=== PATIENT | male | born 2000 | race Caucasian/White ===

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

== ENCOUNTER 2019-04-27 20:59 | Emergency (ER) | payer MEDICAID, SELFPAY ==
--- NOTE | 2019-04-27 21:00 | ED.GENADUL_ITS ---
Discharge Plan Disposition Patient Disposition: HOME Condition: Good Discharge Details Chief Complaint: Fever Clinical Impression: Viral URI, Asthma exacerbation Primary Care Provider: Cesar Law ED Provider: Fidel Simental Home Meds and New Rx's Prescriptions: New loratadine 10 mg capsule 10 mg PO DAILY Qty: 30 RF: 0 No Action albuterol sulfate [ProAir HFA] 8.5 GM HFA aerosol inhaler 2 puff Inhalation Q4H PRN Qty: 1 RF: 0 Discharge Instructions Instructions: Asthma (ED), Upper Respiratory Infection (ED) Additional Instructions: At this time your flu test is negative, however you may still have the influenza virus. I do suspect that a virus is causing her symptoms. Please take 10 mg of loratadine daily as directed. Drink plenty of fluids, use your inhaler every 4 hours, 2 puffs to help keep your lungs open for your asthma. If you notice any worsening of your symptoms, or any new symptoms such as vomiting, diarrhea, fever, chills, shortness of breath, chest pain, numbness, weakness, or fainting , please return immediately to the emergency department for reevaluation. Please follow up with your primary care provider as soon as possible for reassessment and reevaluation. As always, it was a pleasure participating in your medical care today. Referrals: Cesar Law MD [Primary Care Provider] - Medical Decision Making 49-year-old male with a past medical history of GERD, irritable bowel syndrome, who presents today for evaluation of cough congestion shortness of breath. Patient was seen and assessed here 4 days ago, with signs and symptoms concerning for influenza. Rapid flu testing was negative. Discharged home as he was notably stable at that time. He presents again today for symptoms that have been notably worsening. He continues to have myalgias, cough, intermittent fever, chills, and he has now developed mild shortness of breath with his cough. He denies any significant chest pain aside from when coughing. Entirety of his symptoms have been present for 1 week. He denies any significant headache or neck pain. He denies vomiting or diarrhea. He has been able to eat and drink. He has no other complaints at this time. He denies any other modifying factors. He denies not smoke, vape, or history of lung disease. The patient denies any recent foreign travel or contact with recent immigrants, Travelers, or peoples of [place] or [facility]. Physical exam shows no evidence of abnormal lung sounds, oxygenation is normal. No signs of respiratory distress. No clinical signs of meningitis. Signs and symptoms clinically consistent with a viral upper respiratory infection, fluid certainly on the differential. Symptoms appear inconsistent with coronavirus clinically at this time. However out of precaution, the patient has been placed in an isolated room, with facemask. Will give nebulizer treatment, check for influenza and reassess. Also of note bedside ultrasound was negative for any evidence of infiltrative B-lines. No clinical evidence of pneumonia. No indication for radiographic imaging. 10:21 PM Patient is feeling much better after breathing treatment. Influenza test is negative. Strep test is negative. Signs and symptoms clinically consistent with a viral upper respiratory infection, with no evidence of pneumonia. We will recommend loratadine for home use, given inhaler and spacer for the time being until he can establish follow-up with his PCP. Discussed red flags which to return. At this time the patient shows no evidence of life-threatening illness. I did have a long discussion with the patient and his family who are at bedside regards to signs and symptoms which to immediately return that would be concerning. I have extensively reviewed the treatment plan and discharge instructions with the patient. I have addressed all patient concerns at this time. The patient was made aware of what symptoms to monitor for that would warrant a return to the emergency department. Discussed the plan with the patient, they demonstrate verbal understanding and agreement with our assessment and plan at this time. HPI General Date/Time Provider Initiated Documentation: 04/27/19 20:59 . HPI Narrative: 18-year-old male with a past medical history of asthma, vaping, marijuana use who presents today for evaluation of 24 hours of chills, co ngestion, sinus congestion, runny nose. Patient states that symptoms began with runny nose and congestion 24 hours ago, over the last 12 hours it is included mild cough. He denies shortness of breath or chest pain. He does have a history of asthma but has not had any of his inhalers for quite some time as he has run out. Of note the patient just came back from [place] after living in there for quite some time. He took the bus up here to [place]. He did not get his flu shot this year. The patient denies any recent foreign travel or contact with recent immigrants, Travelers, or peoples of [place] or [facility]. Patient denies any hemoptysis, nausea vomiting or diarrhea. He does admit to a small amount of productivity with his cough which is clear and sometimes yellow. No other complaints of headache, neck pain. No other modifying factors. Related Data Home Medications Medication Instructions Recorded Confirmed albuterol sulfate [ProAir HFA] 2 puff INHALATION Q4H PRN #1 06/19/17 04/27/19 inhaler loratadine 10 mg PO DAILY #30 cap 04/27/19 Previous Rx's Medication Instructions Recorded albuterol sulfate [ProAir HFA] 2 puff INHALATION Q4H PRN #1 06/19/17 inhaler loratadine 10 mg PO DAILY #30 cap 04/27/19 Allergies Allergy/AdvReac Type Severity Reaction Status Date / Time No Known Allergies Allergy Unverified 04/27/19 21:06 General AGGIE: 2 Review of Systems All systems reviewed & are unremarkable except as noted in HPI and below PFSH Social History Smoking/Tobacco Use Status: Current every day Tobacco Type: e-cigarettes Alcohol Intake: current Alcohol Intake frequency: holidays/special occasions only Alcohol type: beer Drug use: Occasionally Substance use type: marijuana Do you feel safe at home: Yes Do you feel safe in your relationship?: Yes Exam Narrative Exam Narrative: 1.Const: Well-nourished, Well-developed, appearing stated age 2.Eyes: PERRL, no conjunctival injection, and symmetrical lids. 3.ENT: Atraumatic external nose and ears. Moist MM. Neck: Symmetric, trachea midline, No thyromegaly. Patient demonstrates good movement of cervical neck. There is no nuchal rigidity, no nuchal tenderness. Patient is able to flex the neck without any difficulty or significant pain. Negative Kernig's and Brudzinski sign. Notable runny nose, mild cobblestoning in the posterior oropharynx. 4.CVS: +S1/S2, No murmurs or gallops. Peripheral pulses 2+ and equal in all extremities. Brisk capillary refill in all extremities. 5.RESP: Unlabored respiratory effort. Clear to auscultation bilaterally. No wheezes rales or rhonchi, no clinical evidence of pneumonia. 6.GI: Soft, Nontender/Nondistended, No hepatosplenomegaly. No guarding or rebound. 7.MSK: Normocephalic/Atraumatic, Extremities w/o deformity or ttp No cyanosis or clubbing, Normal movement of all extremities 8.Skin: Warm, Dry. No rashes or lesions. Negative Nikolsky sign. No large vesicles or bulla. No palpable purpura. No oral lesions. No mucosal lesions. No evidence of severe cellulitis. No evidence of vaccine preventable rash. 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 Sensation grossly intact, no focal neurologic deficits. 10.Psych: (AAO) x3. Appropriate mood and affect
[2019-04-27 21:02] VITALS: BP 158/96; PULSE 107; RESP 18; TEMP 36.7; O2SAT 95
[2019-04-27 21:26] VITALS: RESP 7
[2019-04-27] MEDS: Ketorolac 30 MG/ML VIAL IM (21:26)
[2019-04-27] MEDS: Loratidine 10 MG TAB PO (21:26)
[2019-04-27] MEDS: Albuterol/Ipratropium 3 ML UPD VIAL UPD (21:26)
[2019-04-27] MEDS: Albuterol HFA 8 GM 60 PUFF INH IH (22:27)
[2019-04-27] MEDS: Inhaler, Assist Device 1 EACH MC (22:27)
== END 2019-04-27 22:35 | disposition home or self-care (01) ==
PROVIDERS: Emergency Provider Student in an Organized Health Care Education/Training Program; PCP Pediatrics
DX: J45.901 Unspecified asthma with (acute) exacerbation (principal); J06.9 Acute upper respiratory infection, unspecified; B34.9 Viral infection, unspecified; F17.290 Nicotine dependence, other tobacco product, uncomplicated
CPT/HCPCS: 87449; 87880; 94640; 96372; 99284; 87081; 99283; J1885; J7620

== ENCOUNTER 2019-07-26 23:10 | Emergency (ER) | payer MEDICAID, SELFPAY ==
[2019-07-26 23:14] VITALS: BP 147/84; PULSE 97; RESP 18; TEMP 36.3; O2SAT 97
--- NOTE | 2019-07-26 23:24 | ED.GENADUL_ITS ---
Discharge Plan Disposition Patient Disposition: HOME Condition: Stable Discharge Details Chief Complaint: Laceration Clinical Impression: Laceration of knee, left Primary Care Provider: Cesar Law ED Provider: Gibson Greenfield [place] Meds and New Rx's Prescriptions: Continued albuterol sulfate [ProAir HFA] 8.5 GM HFA aerosol inhaler 2 puff Inhalation Q4H PRN Qty: 1 RF: 0 loratadine 10 mg capsule 10 mg PO DAILY Qty: 30 RF: 0 Discharge Instructions Instructions: Laceration (ED) Additional Instructions: return in 10 days for evaluation for suture removal if you have spreading redness or yellow/white discharge return to the emergency department for reevaluation Stand Alone Forms: Work Release Medical Decision Making 18 yo male was walking when he tripped and landed on gravel, no head trauma or loc but did sustain a v shaped 3cm laceration of left inferior anterior knee. Has full romof the knee and can bear weight, lac only goes to subcutanous tissue. Given full rom and can bear weight doubt fracture or tendon injury. Will irrigate and close with sutures Differential Diagnosis Differential Diagnosis: laceration abrasion HPI General Mode of arrival: ambulatory . Date/Time Provider Initiated Documentation: 07/26/19 23:11 . Limitations to Documentation: no limitations . Information obtained by: patient . History of Present Illness 18 year old M presents to the emergency department with the chief complaint of left knee laceration, described as moderate, and it has been constant. No relieving factors improve symptom(s), No exacerbating factors reported . Patient did receive the following treatments prior to arrival, none Related Data Home Medications Medication Instructions Recorded Confirmed albuterol sulfate [ProAir HFA] 2 puff INHALATION Q4H PRN #1 18 04/27/19 inhaler loratadine 10 mg PO DAILY #30 cap 04/27/19 Previous Rx's Medication Instructions Recorded albuterol sulfate [ProAir HFA] 2 puff INHALATION Q4H PRN #1 06/19/17 inhaler loratadine 10 mg PO DAILY #30 cap 04/27/19 Allergies Allergy/AdvReac Type Severity Reaction Status Date / Time No Known Allergies Allergy Unverified 04/27/19 21:06 General Stated Complaint: Laceration AGGIE: 4 Review of Systems All systems reviewed & are unremarkable except as noted in HPI and below Constitutional Constitutional: Denies chills, Denies fever(s) and Denies weakness Cardiovascular Cardiovascular: Denies chest pain and Denies dyspnea Respiratory Respiratory: Denies cough and Denies dyspnea Gastrointestinal Gastrointestinal: Denies abdominal pain, Denies nausea and Denies vomiting Musculoskeletal Musculoskeletal: Denies joint swelling Neurologic Neurologic: Denies weakness [facility] Social History Smoking/Tobacco Use Status: Current every day Tobacco Type: e-cigarettes Alcohol Intake: current Alcohol Intake frequency: holidays/special occasions only Alcohol type: beer Drug use: Occasionally Substance use type: marijuana Do you feel safe at home: Yes Do you feel safe in your relationship?: Yes Exam Const General: no acute distress Orientation: alert HENMT Head: normal to inspection Ears: external ears normal General nose exam: external nose normal Mouth: moist mucous membranes Eyes General: appearance normal, both eyes and all related structures Neck Neck: normal visual inspection Resp Effort & Inspection: normal respiratory effort and able to speak in complete sentences Cardio Rate: regular rate Skin General skin exam: no rashes or lesions noted Neuro General: patient alert and patient oriented x3 Extrem General: full ROM and capillary refill normal Psych Mental Status: mental status grossly normal Course Vital Signs Vital signs: Vital Signs Temperature 36.3 C L 07/26/19 23:14 Pulse 97 H 07/26/19 23:14 Respiratory Rate 18 07/26/19 23:14 Blood Pressure 147/84 H 07/26/19 23:14 Pulse Oximetry 97 07/26/19 23:14 Temperature 36.3 C L 07/26/19 23:14 Temperature Source Temporal Artery Scan 07/26/19 23:14 Pulse 97 H 07/26/19 23:14 Respiratory Rate 18 07/26/19 23:14 Respiratory Effort 07/26/19 23:17 Blood Pressure 147/84 H 07/26/19 23:14 Blood Pressure Position Sitting 07/26/19 23:14 Pulse Oximetry 97 07/26/19 23:14 Procedures Laceration Laceration 1: Site: lower extremity Side (If applicable): left Size (cm): 3 Description: stellate Depth: simple, single layer Local Anesthetic: Lidocaine 1% Amount of anesthesia used (mL): 6 Pre-repair: wound explored Skin layer closed with: nylon Size (cm): 5-0 Number of sutures: 4 Technique: simple, interrupted Subcutaneous layer closed with: chromic gut Size: 4-0 Number of sutures: 4 Technique: simple, interrupted
== END 2019-07-26 23:55 | disposition home or self-care (01) ==
LOC: ER 07-27 00:57
PROVIDERS: Emergency Provider Emergency Medicine; PCP Pediatrics
DX: S81.012A Laceration without foreign body, left knee, initial encounter (principal); W18.39XA Other fall on same level, initial encounter
CPT/HCPCS: 12002

== ENCOUNTER 2019-07-31 14:36 | Emergency (ER) | payer MEDICAID, SELFPAY ==
[2019-07-31 14:40] VITALS: BP 139/91; PULSE 106; RESP 16; TEMP 36.8; O2SAT 95
--- NOTE | 2019-07-31 14:44 | ED.GENADUL_ITS ---
Discharge Plan Disposition Patient Disposition: HOME Condition: Stable Discharge Details Chief Complaint: Recheck Clinical Impression: Wound infection Primary Care Provider: Cesar Law ED Provider: Diana Berger Home Meds and New Rx's Prescriptions: New cephalexin [Keflex] 500 mg capsule 500 mg PO QID 7 Days Qty: 28 RF: 0 Discharge Instructions Instructions: Wound Infection (ED) Additional Instructions: Drink plenty of fluids and get plenty of rest. Rest and elevate the affected area as much as possible. Alternate tylenol and motrin as needed and directed for pain. Take the antibiotics until finished. Return to the emergency department on August 05 for suture removal. Return to the emergency department anytime if you develop any worsening symptoms of fever, increased pain, redness or swelling. Discharge Data Discharge Date/Time-TO BE ENTERED AT DEPARTURE: 07/31/19 15:17 Discharge Physician: Diana Berger Medical Decision Making 18-year-old male 5 days status post suture placement to left knee presents for wound evaluation with concern for possible infection. [address] with mild surrounding erythema, minimal tenderness and skin warm to touch in the area and just directly surrounding wound. There is no drainage or evidence of abscess. Presentation not consistent with septic joint at this time. There are 2 open areas at the ends of the wounds and unclear if this was present at time of suture placement. Therefore will cover with Keflex for the next week. Patient advised on proper wound care. Wound dressed with antibiotic ointment and nonadherent dressing. Advised to return on August 05 for suture removal. Usual and customary return precautions given prior to discharge. HPI General Mode of arrival: ambulatory . Date/Time Provider Initiated Documentation: 07/31/19 14:39 . Limitations to Documentation: no limitations . Information obtained by: patient . HPI Narrative: Patient is a 18-year-old male who presents for wound reevaluation of left knee laceration status post suture placement 5 days ago here in the ED. Patient states his mom thought the skin around the area appeared red and warm to touch. Patient does admit to some discomfort around the area. He denies any fever or drainage. Related Data Home Medications Medication Instructions Recorded Confirmed cephalexin [Keflex] 500 mg PO QID 7 Days #28 cap 07/31/19 Previous Rx's Medication Instructions Recorded cephalexin [Keflex] 500 mg PO QID 7 Days #28 cap 07/31/19 Allergies Allergy/AdvReac Type Severity Reaction Status Date / Time No Known Allergies Allergy Unverified 07/31/19 14:44 General AGGIE: 4 Review of Systems All systems reviewed & are unremarkable except as noted in HPI and below Constitutional Constitutional: Reports as per HPI, Denies chills and Denies fever(s) Eyes Eyes: Denies blurry vision ENT Ears, Nose, Mouth, and Throat: Denies dizziness, Denies sore throat and Denies t hroat swelling Cardiovascular Cardiovascular: Denies chest pain and Denies dyspnea Respiratory Respiratory: Denies cough and Denies dyspnea Gastrointestinal Gastrointestinal: Denies abdominal pain, Denies diarrhea and Denies vomiting Genitourinary Genitourinary: Denies hematuria and Denies dysuria Musculoskeletal Musculoskeletal: Denies back pain and Denies numbness Integumentary/Breasts Skin/Breast: Reports lesions and Denies rash Neurologic Neurologic: Denies dizziness, Denies localized weakness and Denies numbness Allergic/Immunologic Allergic/Immunologic: Denies throat swelling [facility] Social History Smoking/Tobacco Use Status: Never Alcohol Intake: current Alcohol Intake frequency: holidays/special occasions only Alcohol type: beer Drug use: Occasionally Substance use type: marijuana Do you feel safe at home: Yes Do you feel safe in your relationship?: Yes Exam Const General: cooperative, healthy appearing and no acute distress HENMT Head: normal to inspection Mouth: oral mucosae normal Eyes General: appearance normal, both eyes and all related structures Neck Neck: normal visual inspection Resp Effort & Inspection: normal respiratory effort and able to speak in complete sentences Cardio Rate: regular rate Skin General skin exam: no rashes or lesions noted Neuro General: patient alert, patient awake and patient oriented x3 Motor: muscle tone normal throughout Extrem Knee images: 1. [address] in [address]. There are 2 sections at ends of wound noted to be open with subcutaneous tissue visible. There is mild surrounding erythema and warmth to touch of skin around edges of wound. There is no fluctuance, induration or drainage. Psych Appearance: grossly normal Affect: normal affect
== END 2019-07-31 15:17 | disposition home or self-care (01) ==
LOC: ER 15:18
PROVIDERS: Emergency Provider Physician Assistant; PCP Pediatrics
DX: T81.41XA Infection following a procedure, superficial incisional surgical site, initial encounter (principal); S81.012A Laceration without foreign body, left knee, initial encounter; W18.39XA Other fall on same level, initial encounter
CPT/HCPCS: 99283

== ENCOUNTER 2019-08-07 19:38 | Emergency (ER) | payer MEDICAID, SELFPAY ==
[2019-08-07 19:45] VITALS: BP 135/94; PULSE 89; RESP 16; TEMP 36.4; O2SAT 96
--- NOTE | 2019-08-07 20:09 | W.ED.GENAD ---
Discharge Plan Disposition Patient Disposition: HOME Condition: Good Discharge Details Chief Complaint: Laceration Clinical Impression: Dehiscence of wound, Visit for wound check, Visit for suture removal Primary Care Provider: Cesar Law ED Provider: Fidel Simental Discharge Instructions Instructions: Chronic Wound Care (ED) Additional Instructions: At this time because the wound has opened up 6 to 7 days ago we are unable to suture it back together. It will need to heal in what is called secondary intention. This means it will gradually heal from the inside out. It is important to wash it 2 times a day gently with soap and water, keep it covered with a bandage at all times. You can continue to apply triple antibiotic ointment. Our wound care team will contact you for reassessment. I suspect that it will take 3 to 5 months to completely heal. If you notice any signs of infection which would include redness, pain when you move your knee, swelling, fever or chills start taking your antibiotic immediately, and return immediately for reassessment. If you notice any worsening of your symptoms, or any new symptoms such as vomiting, diarrhea, fever, chills, shortness of breath, chest pain, numbness, weakness, or fainting , please return immediately to the emergency department for reevaluation. Please follow up with your primary care provider Dr. Law as soon as possible for reassessment and reevaluation. As always, it was a pleasure participating in your medical care today. Referrals: Cesar Law MD [Primary Care Provider] - Medical Decision Making 18-year-old male with past medical history of irritable bowel syndrome who presents today for evaluation of wound recheck. 10 days ago the patient fell on a gravel sidewalk/driveway, the knee was significantly washed out by my colleague, 4 sutures were placed, patient was discharged home, 4 days later there was some lack of healing, he was prescribed an antibiotic Keflex here in the ED, however he only took 1 pill but then did not take anymore because of his irritable bowel disease. The next day the patient states that the skin began to tear away, and the wound dehisced. School for the last 6 days he has been continuing to wash it and apply triple antibiotic ointment. He comes in to be reevaluated today. He denies any redness, warmth, pain with movement of the knee, fever, chills or any other complaints. No other modifying factors at this time. Physical exam demonstrates wound that is healing well due to secondary intention, notable granulomatous tissue in the center, no signs of cellulitis whatsoever with no evidence of redness warmth swelling edema or pain with the knee. No clinical evidence of a septic joint or an infected joint at this stage. No systemic symptoms of fever chills or other abnormalities concerning for infection. No current clinical indication for antibiotics. At this stage the wound is not appropriate for bring back together, is otherwise clean and healing well. Recommend continued wound cleaning techniques at home and gradual slow healing with secondary intention. Wound cleaning instructions were given here by both myself and the nurse. The wound was also cleaned and re-bandaged here. We will place a consult/call for wound care to evaluate the patient, as well as follow-up with his PCP. Discussed red flags for which to immediately return including signs and symptoms concerning for infection. I have extensively reviewed the treatment plan and discharge instructions with the patient. I have addressed all patient concerns at this time. The patient was made aware of what symptoms to monitor for that would warrant a return to the emergency department. Discussed the plan with the patient, they demonstrate verbal understanding and agreement with our assessment and plan at this time. HPI General Date/Time Provider Initiated Documentation: 08/07/19 19:58. HPI Narrative: 18-year-old male with past medical history of irritable bowel syndrome who presents today for evaluation of wound recheck. 10 days ago the patient fell on a gravel sidewalk/driveway, the knee was significantly washed out by my colleague, 4 sutures were placed, patient was discharged home, 4 days later there was some lack of healing, he was prescribed an antibiotic Keflex here in the ED, however he only took 1 pill but then did not take anymore because of his irritable bowel disease. The next day the patient states that the skin began to tear away, and the wound dehisced. School for the last 6 days he has been continuing to wash it and apply triple antibiotic ointment. He comes in to be reevaluated today. He denies any redness, warmth, pain with movement of the knee, fever, chills or any other complaints. No other modifying factors at this time. Related Data Allergies Allergy/AdvReac Type Severity Reaction Status Date / Time No Known Allergies Allergy Unverified 07/31/19 14:44 General Stated Complaint: Laceration AGGIE: 4 Review of Systems All systems reviewed & are unremarkable except as noted in HPI and below PFSH Medical History Asthma Migraine Overweight Family History Mother Hyperlipidemia Mental disorder Depression, Anxiety, bipolar, ADD GERD (gastroesophageal reflux disease) daily prilosec declines endoscopy Father Mental disorder Other Hyperlipidemia Depression and Anxiety Bipolar ADD Mental disorder Bipolar MFG, MGGF ADD - brother Grandfather GERD (gastroesophageal reflux disease) Other Asthma Social History Smoking/Tobacco Use Status: Never Alcohol Intake: current Alcohol Intake frequency: holidays/special occasions only Alcohol type: beer Drug use: Occasionally Substance use type: marijuana Do you feel safe at home: Yes Do you feel safe in your relationship?: Yes Exam Narrative Exam Narrative: 1.Const: Well-nourished, Well-developed, appearing stated age 2.Eyes: PERRL, no conjunctival injection, and symmetrical lids. 3.ENT: Atraumatic external nose and ears. Moist MM. Neck: Symmetric, trachea midline, No thyromegaly. 4.CVS: +S1/S2, No murmurs or gallops. Peripheral pulses 2+ and equal in all extremities. Brisk capillary refill in all extremities. 5.RESP: Unlabored respiratory effort. Clear to auscultation bilaterally. No wheezes rales or rhonchi 6.GI: Soft, Nontender/Nondistended, No hepatosplenomegaly. No guarding or rebound. 7.MSK: Patient's left knee demonstrates a dehisced lesion, granulomatous tissue noted at the center, no erythema, redness, or warmth. No crepitus, swelling, or pain with movement of the knee. No signs of cellulitis or infection whatsoever at this time. There is only granulomatous tissue with slow healing noted. 3-4 small pieces of gravel were noted, these were removed without difficulty. 2 remaining sutures were present, these were clipped. These are only on the periphery and not actually keeping skin together. No other abnormalities. No abnormalities distal and proximal to the laceration site. Diameter of the wound is 2.5 cm x 2.5 cm. 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 Sensation grossly intact, no focal neurologic deficits. 10.Psych: (AAO) x3. Appropriate mood and affect Course Vital Signs Vital signs: Vital Signs Temperature 36.4 C L 08/07/19 19:45 Pulse 89 08/07/19 19:45 Respiratory Rate 16 08/07/19 19:45 Blood Pressure 135/94 H 08/07/19 19:45 Pulse Oximetry 96 08/07/19 19:45 Temperature 36.4 C L 08/07/19 19:45 Temperature Source Tympanic 08/07/19 19:45 Pulse 89 08/07/19 19:45 Respiratory Rate 16 08/07/19 19:45 Respiratory Effort 08/07/19 19:50 Blood Pressure 135/94 H 08/07/19 19:45 Blood Pressure Position Sitting 08/07/19 19:45 Pulse Oximetry 96 08/07/19 19:45 Oxygen Delivery Method Room Air 08/07/19 19:45 Oxygen Flow Rate 0 08/07/19 19:45 Pain Level 2 08/07/19 19:45
--- NOTE | 2019-08-07 20:30 | NUR.NOTE ---
Nursing Note: wound cleaned and irrigated. Non-adherent gauze applied with alejandra.
--- NOTE | 2019-08-09 22:10 | NUR.NOTE ---
REFERRAL FAXED TO MD FOR FOLLOW UP CARE. Nursing Note:
== END 2019-08-07 20:30 | disposition home or self-care (01) ==
PROVIDERS: Emergency Provider Student in an Organized Health Care Education/Training Program; PCP Pediatrics
DX: T81.33XD Disruption of traumatic injury wound repair, subsequent encounter (principal); Y84.8 Other medical procedures as the cause of abnormal reaction of the patient, or of later complication, without mention of misadventure at the time of the procedure; S81.022D Laceration with foreign body, left knee, subsequent encounter; W18.39XD Other fall on same level, subsequent encounter
CPT/HCPCS: 99282

== ENCOUNTER 2019-09-16 17:51 | Emergency (ER) | payer MEDICAID, SELFPAY ==
--- NOTE | 2019-09-16 17:53 | ED.GENADUL_ITS ---
Discharge Plan Disposition Patient Disposition: HOME Condition: Good Discharge Details Chief Complaint: HeadInjury Clinical Impression: Concussion, Contusion, Abrasion Primary Care Provider: None,None ED Provider: Nicole Rodriguez Home Meds and New Rx's Prescriptions: No Action No Known Home Meds RF: 0 Discharge Instructions Instructions: Concussion (ED), Abrasion (ED) Additional Instructions: Please continue to encourage water intake. You may use Tylenol and/or ibuprofen as needed for discomfort. Please try to avoid screens and physical exertion as this could worsen your headaches. Am concerned that you do have a mild concussion. If you develop weakness, confusion, visual changes, vomiting, increasing headache or other new/worsening symptom please seek care urgently once again. Regarding your abrasions, please keep the wounds clean and dry. Monitor for signs infection including redness, warmth, drainage, increased pain, fever/chills. If you develop these redness/worsening symptoms to seek care urgently once again. Otherwise, please follow-up with primary care for reevaluation in 1 week. Referrals: Cesar Law MD [ [facility] STAFF PHYSICIAN] - Medical Decision Making Patient is a 19-year-old male past medical history significant for being overweight. Is presenting today for evaluation of a skateboard. He reports that he was just pushing off on his long skateboard when he tripped over his and fell striking the back of his head. He was not wearing a helmet. Is unclear if he fell on grass or side of the sidewalk. Sustained abrasion to the back of his head as well as his right elbow and right knee. He denies any loss of consciousness, rather the patient describes popping up. States he was able to get back on board and go home. Is endorsing a minimal headache and rates the pain a 1 out of 10. Primarily this is over the area where he struck. Suffered a small abrasion in this area and noted a small contusion. Denies any nausea or vomiting. No confusion. Is not noted new weakness or sensory deficits. Denies any neck or back pain. No shortness of breath or chest pain. Patient is up-to-date on immunizations. On exam, patient is resting comfortably. He does have a contusion and small abrasion on the right occipital region of his head. No evidence of skull fra cture. Normal exam of the cervical spine, no midline tenderness thoracic spine either. Neurologic exam is intact. He does have small abrasion to the back of his head as well as the right elbow and the right knee. No active bleeding. Sensation is intact distally. Full range of motion 5/5 strength in all extremities. Patient I discussed Treatment options. All the wounds were cleansed by nursing staff. He is declining any analgesics. Is now reporting the pain is a 0 out of 10. He does report that he has been dehydrated today and was initially noted to be tachycardic with a heart rate of 129. After sitting in the room his heart rate is down to 110. He is drinking water. Patient has been tachycardic historically. I did encourage water intake. I advised close follow-up with primary care. I did advise given the mechanism of injury and that initially the patient felt dazed he may have suffered a mild concussion. Standard postconcussive guidelines were given. He does live above his parents is able to return urgently if he develops any new or worsening symptoms. Discussed return precautions at length. Also discussed care of his abrasions and signs symptoms of infection. All his questions and concerns were addressed and he is agreement this plan. HPI General Mode of arrival: ambulatory . Date/Time Provider Initiated Documentation: 09/16/19 17:53 . Limitations to Documentation: no limitations . Information obtained by: patient and RN notes reviewed . History of Present Illness 19 year old M presents to the emergency department with the chief complaint of fall off skate board, struck back of head, described as mild, with intensity rated at 1. Quality is described as aching, and is localized to the head. Patient reports no radiation. Patient started experiencing this minute(s) (20) and it has been constant (improving). No relieving factors improve symptom(s), No exacerbating factors reported . Patient notes denies confusion, chest pain, cough, fever/chills, loss of appetite, nausea/vomiting, shortness of breath, syncope and weakness. Patient did receive the following treatments prior to arrival, none Related Data Home Medications Medication Instructions Recorded Confirmed Unknown [No Known Home Meds] 09/16/19 09/16/19 Allergies Allergy/AdvReac Type Severity Reaction Status Date / Time No Known Allergies Allergy Unverified 09/16/19 17:59 General AGGIE: 4 Review of Systems Constitutional Constitutional: Reports as per HPI, Denies chills, Denies fatigue, Denies fever(s), Reports headache(s) (very mild, reports 1/10 over area of contusion) and Denies weakness Eyes Eyes: Reports as per HPI, Denies blurry vision, Denies change in vision and Denies loss of vision ENT Ears, Nose, Mouth, and Throat: Denies abnormal hearing and Reports headache(s) (very mild, reports 1/10 over area of contusion) Cardiovascular Cardiovascular: Reports as per HPI, Denies chest pain and Denies dyspnea Respiratory Respiratory: Reports as per HPI, Denies cough, Denies pain on inspiration, Denies pain with cough and Denies dyspnea Gastrointestinal Gastrointestinal: Reports as per HPI, Denies abdominal pain, Denies nausea and Denies vomiting Genitourinary Genitourinary: Reports as per HPI and Denies urinary incontinence Musculoskeletal Musculoskeletal: Reports as per HPI Integumentary/Breasts Skin/Breast: Reports as per HPI and Reports wounds (abrasion to right elbow, right knee, back of head) Neurologic Neurologic: Reports as per HPI, Denies abnormal hearing, Denies abnormal movements, Denies abnormal speech, Reports headache(s) (very mild, reports 1/10 over area of contusion), Denies lack of coordination, Denies localized weakness, Denies loss of vision, Denies seizure-like activity, Denies paresthesias and Denies weakness Endocrine Endocrine: Denies fatigue [facility] Medical History Asthma Migraine Overweight Social History Smoking/Tobacco Use Status: Never Alcohol Intake: current Alcohol Intake frequency: holidays/special occasions only Alcohol type: beer Drug use: Occasionally Substance use type: marijuana Do you feel safe at home: Yes Do you feel safe in your relationship?: Yes Exam Const General: cooperative, healthy appearing, comfortable, no acute distress, well developed and well groomed Nutritional Appearance: well nourished and obese Orientation: alert, awake and oriented x3 HENMT Head: normal to inspection, no palpable skull fracture, abrasion (2cm, very superficial) right occipital, no acral cyanosis, no Rouse's sign, contusion (under abrasion), no hematomas, no lacerations, no occipital foramen tenderness, no palpable skull fracture, no raccoon eyes and No periorbital ecchymosis Ears: hearing grossly normal bilaterally, external ears normal and TM's normal bilaterally General nose exam: external nose normal Face and sinus: normal facial exam Mouth: oral mucosae normal, lip normal and tongue normal Throat: posterior oropharynx normal Eyes General: appearance normal, both eyes and all related structures Visual Alegre: normal visual alegre by confrontation Alignment and Position: alignment normal Periorbital: periorbital findings normal Eyelids: eyelids normal Conjunctivae: conjunctivae normal Pupils: PERRL EOM: EOM intact bilaterally Neck Neck: normal visual inspection, full ROM, no lymphadenopathy, no meningeal signs, trachea midline and supple Chest Chest: normal inspection of the chest, normal palpation of entire chest wall, no crepitus and no localized rib tenderness Resp Effort & Inspection: normal respiratory effort, able to speak in complete sentences and no respiratory distress Auscultation: clear to auscultation bilaterally, no rales, no rhonchi and no wheezes Cardio Rate: regular rate Rhythm: regular rhythm Heart Sounds: S1 normal and S2 normal Back/Spine/Pelvis Back: no CVA tenderness Cervical Spine: normal cervical lordosis and cervical ROM normal Thoracic/Lumbar Spine: thoracic and lumbar spine normal to inspection, thoraco- lumbar ROM normal, No thoraco-lumbar ROM limited, No thoraco-lumbar spasm and No thoracic spinal tenderness Pelvis: no pain with anterior-posterior compression and no pain with lateral compression Skin Trauma: abrasion Full body images: 1. area of contusion and abrasion, no palpable fracture 2. superficial abrasion, no active bleeding. Full ROM, strength intact, sensation intact. 3. superficial abrasion, no active bleeding. Full ROM, strength intact, sensation intact. Neuro General: patient alert, patient awake, patient oriented x3, gait normal, tone normal and moves all extremities Cranial Nerves: CN's II-XI intact bilaterally Cognition: normal cognition Speech: speech normal Gait: normal gait Motor: muscle tone normal throughout and strength 5/5 throughout Sensory Exam: no sensory deficits noted (no saddle paresthesias) Coordination: [id number] test normal, [id number] test normal and Romberg test normal Extrem General: normal to inspection, full ROM, capillary refill normal, no pedal edema, no calf tenderness and other (abrasions as above) Psych Appearance: grossly normal and well kempt Mental Status: mental status grossly normal Speech and Movement: speech and movement normal
[2019-09-16 17:55] VITALS: BP 145/59; PULSE 129; RESP 16; TEMP 36.8; O2SAT 97
[2019-09-16 18:22] VITALS: PULSE 110; RESP 18; O2SAT 98
== END 2019-09-16 18:35 | disposition home or self-care (01) ==
PROVIDERS: Emergency Provider Physician Assistant
DX: S06.0X0A Concussion without loss of consciousness, initial encounter (principal); S00.01XA Abrasion of scalp, initial encounter; S50.311A Abrasion of right elbow, initial encounter; S80.211A Abrasion, right knee, initial encounter; V00.131A Fall from skateboard, initial encounter; Y93.51 Activity, roller skating (inline) and skateboarding
CPT/HCPCS: 99282; 99283

== ENCOUNTER 2019-10-30 16:10 | Outpatient (REF) | payer MEDICAID, SELFPAY ==
[2019-11-02 22:31] LABS: Patient Race White; SARS-CoV-2 RNA Undetected (Undetected); SARS-CoV-2 Specimen Source Nasopharynx
== END 2019-10-30 16:30 ==
LOC: NCHCN 16:10
PROVIDERS: Visit Provider Nurse Practitioner Family
DX: Z20.828 Contact with and (suspected) exposure to other viral communicable diseases (principal)
CPT/HCPCS: U0003

== ENCOUNTER 2020-04-22 21:15 | Emergency (ER) | payer MEDICAID, SELFPAY ==
[2020-04-22] VITALS (16 sets, daily range): BP systolic 110–128; BP diastolic 65–70; PULSE 102–113; RESP 18; TEMP 37.7–38.4; O2SAT 94–98
--- NOTE | 2020-04-22 21:30 | DI.CT_ITS ---
EXAM: CT ABDOMEN PELVIS W CLINICAL HISTORY: RLQ abdominal pain, fever. TECHNIQUE: Imaging Protocol: Axial computed tomography images with coronal and sagittal reformatted images were created and reviewed CONTRAST MATERIAL: Intravenous: Omnipaque 350 Contrast volume:150 ml Oral: no COMPARISON: No exams were available for comparison FINDINGS: ABDOMEN: Lung Bases: Normal where visualized. Liver: Enlarged with mild to moderate fatty infiltration.. No measurable mass. Gallbladder and biliary tract: No radiodense calculus or dilation. Pancreas: Normal density, no abnormal calcifications or inflammatory process. Spleen: Normal. Kidneys: Normal size, contour and axis. No radiodense stones or obstructive uropathy. No masses seen. Adrenal glands: No masses seen. Abdominal Aorta: Abdominal portion non-dilated. PELVIS: Bladder: Nearly empty but unremarkable. Bowel: The colon is mainly free of stool. There is fluid seen in the lower descending colon and sigmo id. There is wall thickening in these regions. Findings are are consistent with colitis. The appendix appears normal. There are mildly enlarged mesenteric lymph nodes, consistent with reactive lymph nod es. The small bowel and stomach are unremarkable. There is no pneumatosis. Peritoneal cavity: No ascites, collection or mesenteric inflammatory response. No free air. Bones: Mild degenerative changes in the lower thoracic spine. Bilateral L5 spondylolysis but no spond ylolisthesis. Reproductive organs: Within normal limits. Impression: Fluid-filled colon with wall thickening and reactive mesenteric lymph nodes, consistent with colitis. Normal appendix. RADIATION DOSE DELIVERED: 2,023.73mGy.cm Total DLP DATA REPOSITORY: All CT scans at this facility are submitted to the National Radiology Data Registry (NRDR) Dose Index Registry (DIR) with the [employer] (A[employer]). RADIATION OPTIMIZATION: All CT scans at this facility use at least one of these dose optimization te chniques: automated exposure control; mA and/or kV adjustment per patient size (includes targeted exa ms where dose is matched to clinical indication); or iterative reconstruction.
--- NOTE | 2020-04-22 21:40 | ED.GENADUL_ITS ---
Discharge Plan Discharge Details Chief Complaint: Abd Prob Primary Care Provider: None,None ED Provider: Alysha Farley Home Meds and New Rx's Prescriptions: No Action naproxen sodium [Aleve] 220 mg Tablet 440 mg PO Q6H PRNRF: 0 ibuprofen [Advil] 200 mg Tablet 400 mg PO Q6H PRNRF: 0 HPI This 19-year-old male presents nausea, vomiting, diarrhea which started 40 years ago. He attributed it to eating above possibly made him ill as he developed symptoms. Abdominal pain which concerns him. He states he is also trouble moving his bowels. He denies any chest pain or shortness of breath. He has had chills at home. Has not taken any [id number] medication. He denies any diarrhea for the past 48 hours. Denies known sick contacts with cough. He denies any additional complaints at this time. Denies any urinary complaints. Denies any exacerbating or alleviating factors. Described as a throbbing sensation in his lower abdomen denies any risk of sexually transmitted disease, hematuria, urinary output shows reportedly. Denies cough. Denies foreign travel. General Date/Time Provider Initiated Documentation: 04/22/20 21:17 . Related Data Home Medications Medication Instructions Recorded Confirmed ibuprofen [Advil] 400 mg PO Q6H PRN 04/22/20 04/22/20 naproxen sodium [Aleve] 440 mg PO Q6H PRN 04/22/20 04/22/20 Allergies Allergy/AdvReac Type Severity Reaction Status Date / Time No Known Allergies Allergy Unverified 04/22/20 21:26 General Stated Complaint: Abd Prob AGGIE: 3 Review of Systems Narrative: Review of systems negative aside from where indicated in HPI [facility] Medical History (Updated 10/17/19 @ 00:01 by AJITH CAMPBELL) Asthma Migraine Overweight Family History Mother Hyperlipidemia Mental disorder Depression, Anxiety, bipolar, ADD GERD (gastroesophageal reflux disease) daily prilosec declines endoscopy Father Mental disorder Other Hyperlipidemia Depression and Anxiety Bipolar ADD Mental disorder Bipolar MFG, MGGF ADD - brother Grandfather GERD (gastroesophageal reflux disease) Other Asthma Social History Smoking/Tobacco Use Status: Never Smoking risk assessment performed?: Yes Alcohol Intake: current Alcohol Intake frequency: holidays/special occasions only Alcohol type: beer Drug use: Occasionally Substance use type: marijuana Do you feel safe at home: Yes Do you feel safe in your relationship?: Yes Exam Const General: cooperative Orientation: alert and oriented x3 HENMT Other: moist mucous membranes Eyes Pupils: PERRL Chest Chest: normal inspection of the chest Resp Effort & Inspection: normal respiratory effort Auscultation: clear to auscultation bilaterally Cardio Rate: regular rate and tachycardic Rhythm: regular rhythm GI Inspection: normal to inspection Other: tenderness diffusely , RLQ , no rebound or guarding Other: Perirectal region with erythema, contact erythema, no abscess or cellulitic region, no purulent drainage Skin General skin exam: no rashes or lesions noted Neuro General: patient alert and patient oriented x3 Course Vital Signs Vital signs: Vital Signs Temperature 37.7 C H 04/22/20 21:19 Pulse 113 H 04/22/20 21:19 Respiratory Rate 18 04/22/20 21:19 Blood Pressure 125/70 04/22/20 21:19 Pulse Oximetry 98 04/22/20 21:19 Temperature 37.7 C H 04/22/20 21:19 Temperature Source Skin 04/22/20 21:19 Pulse 113 H 04/22/20 21:19 Respiratory Rate 18 04/22/20 21:19 Respiratory Effort Non-Labored 04/22/20 21:29 Blood Pressure 125/70 04/22/20 21:19 Blood Pressure Position Sitting 04/22/20 21:19 Pulse Oximetry 98 04/22/20 21:19 Oxygen Delivery Method Room Air 04/22/20 21:19 Oxygen Flow Rate 0 04/22/20 21:19 Pain Level 6 04/22/20 21:29
[2020-04-22] MEDS: Acetaminophen 500 MG TAB 1000 MG PO (21:50)
[2020-04-22] MEDS: Normal Saline 500 ML 1000 ML IV (21:50)
[2020-04-22 22:15] LABS: Bilirubin Small (Negative); Blood Moderate (Negative); Clarity Sl Cloudy (Clear); Glucose Negative (Negative); Ketones Negative (Negative); Leukocyte Esterase Negative (Negative); Nitrite Negative (Negative); Specific Gravity 1.025 (1.005-1.025); Urobilinogen 0.2 EU/dL (Up TO 0.2)
[2020-04-22 22:17] LABS: HGB 14.9 g/dL (13.5-17.5); MCH 26.1 pg (27.0-33.0); MCHC 33.1 % (32.0-36.0); MCV 78.9 fL (80-95); MPV 10.1 fL (8.0-11.0); Nucleated RBC 0 %; Platelet Count 247 10^3/uL (130-400); RDW 14.6 % (11.8-14.1); RDW-SD 42.3 fL; WBC 12.65 10^3/uL (4.4-10.8)
[2020-04-22 22:25] LABS: Lipase 123 U/L (73-393)
[2020-04-22 22:29] LABS: ALT 48 U/L (16-63); AST 21 U/L (15-37); Albumin 3.3 g/dL (3.4-5.0); Alkaline Phosphatase 79 U/L (46-116); Anion Gap 9.7 mmol/L (3-11); BUN 15 mg/dL (7-18); Bilirubin, Total 0.8 mg/dL (0.2-1.0); CO2 24.3 mmol/L (21.0-32.0); CREATININE 1.2 mg/dL (0.70-1.30); Calcium 9.1 mg/dL (8.5-10.1); Chloride 104 mmol/L (98-107); Glucose 116 mg/dL (74-106); Potassium 3.5 mmol/L (3.5-5.1); Sodium 138 mmol/L (136-145); Total Protein 7.4 g/dL (6.4-8.2)
[2020-04-22 22:32] LABS: Bacteria Negative HPF (Negative); C & S Indicated? Yes; Casts Negative LPF (Negative); Crystals Moderate Amorphous HPF (Negative); Epithelial Cells Negative HPF (Negative); Mucus Moderate (Negative); RBC Negative HPF (0-2); WBC 20-50 HPF (0-5)
[2020-04-22 22:36] LABS: Absolute Lymphocyte Count 1.14 10^3/uL (1.2-3.4); Absolute Neutrophil Count 9.36 10^3/uL (1.2-6.7); Bands % 4
[2020-04-22 22:37] LABS: Absolute Eosinophil Count 0.13 10^3/uL (0.0-0.7); Absolute Monocyte Count 2.02 10^3/uL (0.1-0.8); Diff Comment Manual Differential; RBC Morphology Normal
[2020-04-22] MEDS: Normal Saline - Diluent 50 ML VIAL IV (22:47)
[2020-04-22] MEDS: Normal Saline Flush 10 ML SYR IVP (22:47)
[2020-04-22] MEDS: Omnipaque 350 MG/ML 50 ML BTL IJ (22:48)
[2020-04-22] MEDS: Normal Saline 500 ML IV (22:53)
--- NOTE | 2020-04-22 23:49 | DI.VRAD_ITS ---
PROCEDURE INFORMATION: Exam: CT Abdomen And Pelvis With Contrast Exam date and time: 04/22/2020 9:40 PM Age: 19 years old Clinical indication: Abdominal pain; Patient HX: Rlq pain, fever TECHNIQUE: Imaging protocol: Computed tomography of the abdomen and pelvis with contrast. COMPARISON: US RENAL ULTRASOUND(P) ([id number]) 09/08/2014 9:48 AM FINDINGS: Lungs: Lung bases clear. Liver: Normal appearing liver. Gallbladder and bile ducts: Normal appearing gallbladder. No calcified gallstones. No biliary dilatation. Pancreas: Normal appearing pancreas. Spleen: Normal appearing spleen. Adrenal glands: Normal appearing adrenal glands. Kidneys and ureters: Normal appearing kidneys. No hydronephrosis. Stomach and bowel: No oral contrast. Stomach partially decompressed. No small bowel dilatation to suggest obstruction. Colon largely well evacuated of fecal material. Fluid throughout the colon suggesting diarrhea. Mural thickening throughout much of the colon with an appearance suggesting extensive colitis. Clinical correlation recommended. No evidence of focal acute diverticulitis. Appendix: Normal appendix. Intraperitoneal space: No gross ascites or free air. Vasculature: Normal caliber abdominal aorta. Normal caliber abdominal aorta. Superior mesenteric artery and vein grossly patent. Lymph nodes: Scattered shotty mesenteric lymph nodes with clustered mildly enlarged lymph nodes in the right lower quadrant, probably reactive given the appearance of the colon. Urinary bladder: Urinary bladder collapsed and not well evaluated but grossly unremarkable, as seen. Reproductive: Normal-appearing prostate gland and seminal vesicles. Bones/joints: No acute fracture seen among the bones of the abdomen or pelvis. Spinal degenerative change with discogenic degeneration at several lower thoracic levels. Soft tissues: Tiny fat-containing ventral hernia at the umbilicus, doubtful clinical significance. IMPRESSION: 1. Colon completely evacuated of formed fecal material. Fluid throughout the colon, nonspecific but commonly seen in the setting of diarrhea from any cause. 2. Apparent mural thickening throughout much of the colon. Extensive acute colitis is suggested. In a young patient, infectious or inflammatory causes of colitis would be suspected primarily although clinical correlation is recommended. Dictated and Authenticated by: Ollie Castillo MD. Ordering:ARELI Encarnacion MD
[2020-04-23 00:01] VITALS: BP 134/73; PULSE 105
--- NOTE | 2020-04-23 00:06 | NUR.NOTE ---
rerferal sent to surgery for scope.....colotitis 04/22/20Nursing Note:
--- NOTE | 2020-04-23 00:12 | NUR.NOTE ---
Nursing Note:referal sent to cm for pcp establish 04/22/20
[2020-04-23] MEDS: Cefdinir 300 MG CAP PO (00:37)
--- NOTE | 2020-04-23 00:37 | NUR.NOTE ---
Addendum entered by Amy Sung 04/23/20 01:06: Patient urinated prior to discharge; urine collected for test and sent. Original Note: Nursing Note: Patient refuses urine chlamydia and reports wanting to go home. Provider made aware. Test cancelled.
[2020-04-23 01:52] LABS: C Diff PCR Negative (Negative)
[2020-04-24 20:04] LABS: Salmonella PCR Negative (Negative); Shiga Toxin PCR Negative (Negative); Shigella/Enteroinvasive Ecoli Negative (Negative)
[2020-04-25 09:50] LABS: Campylobacter PCR Positive (Negative)
--- NOTE | 2020-04-25 10:36 | ED.FU.B_ITS ---
Stool culture reviewed and Campylobacter positive. I called patient in follow- up and he notes that he still has some loose stool, abdominal pain resolved, fever resolved. No indication for cath with active treatment at this time. He noted that he was taking antibiotic for UTI. GC and Chlamydia testing still pending.
[2020-04-26 21:02] LABS: GC Result Negative (Negative)
[2020-04-26 21:08] LABS: Chlamydia Result Positive (Negative)
--- NOTE | 2020-04-27 12:06 | W.ED.FU ---
Date of service: 04/27/20 Time of Service: 12:06 Follow Up Plan: Gonorrhea chlamydia culture positive for chlamydia, negative for gonorrhea. Call made and spoke with patient, regarding results he verbalizes understanding. Azithromycin 1 g p.o. times once sent to [facility] in [place]. Patient states that he is still taking the cefdinir antibiotic twice daily as previously prescribed. He did not disclose any new symptoms, all questions and concerns were answered to the best my ability.
== END 2020-04-23 00:40 | disposition home or self-care (01) ==
PROVIDERS: Emergency Medicine; Emergency Provider Physician Assistant
DX: K52.9 Noninfective gastroenteritis and colitis, unspecified (principal); N39.0 Urinary tract infection, site not specified
CPT/HCPCS: 80053; 83690; 87491; 87493; 87505; 87591; 96360; 96361; 99285; 74177; 81003; 81015; 85025; 87086; 99284; Q9967

== ENCOUNTER 2021-01-02 16:02 | Emergency (ER) | payer MEDICAID, SELFPAY ==
[2021-01-02 16:08] VITALS: BP 155/85; PULSE 83; RESP 18; TEMP 36.8; O2SAT 96
--- NOTE | 2021-01-02 16:15 | DI.RAD_ITS ---
Exam(s) XR KNEE LT 3V AP,LAT,KISHAN EXAM: XR KNEE LT 3V AP,LAT,KISHAN CLINICAL HISTORY: Fall, R/O Fracture. TECHNIQUE: 2D digital imaging was performed of the left knee. Three images were obtained. AP, late ral, Merchant and PA tunnel views were obtained. COMPARISON: CR CHEST 2 VIEWS PA,LAT from 11/27/2010 FINDINGS: BONES: No acute fracture is present. No bony destructive lesion is seen. JOINTS: The knee is normally aligned. No joint effusion is seen. SOFT TISSUE: Normal. IMPRESSION: Normal radiographs of the left knee. DATA REPOSITORY: RADIATION DOSE DELIVERED:
--- NOTE | 2021-01-02 16:15 | DI.RAD_ITS ---
Exam(s) XR ANKLE LT COMPLETE EXAM: XR ANKLE LT COMPLETE CLINICAL HISTORY: R/O Fracture TECHNIQUE: 2D digital imaging was performed of the left ankle. Three images were obtained. AP, lat eral and oblique views were obtained. COMPARISON: No exams were available for comparison FINDINGS: BONES: There is a question of a lucency seen in the dorsal aspect of the navicular on the lateral vie w. This may be artifactual. Acute fracture cannot be excluded. Please correlate clinically. No ayesha ny destructive lesion is seen. JOINTS:The ankle mortise is normally aligned. SOFT TISSUE: Normal. IMPRESSION: Lucency seen in the dorsal aspect of the navicular on the lateral view. This may represent a fractur e versus artifact. If there is continued clinical concern, a CT scan should be considered for furthe r evaluation. DATA REPOSITORY: RADIATION DOSE DELIVERED:
--- NOTE | 2021-01-02 16:15 | DI.RAD_ITS ---
Exam(s) XR TIB/FIB LT EXAM: XR TIB/FIB LT CLINICAL HISTORY: Fall, Pain. TECHNIQUE: 2D digital imaging was performed of the left tibia and fibula. Two images were obtained. AP and lateral views were obtained. COMPARISON: No exams were available for comparison FINDINGS: BONES: The proximal AP view of the tibia is included on the x-ray of the knee performed the same day. No acute fracture is present. No bony destructive lesion is seen. Visualized portion of knee and an kle joints are unremarkable. SOFT TISSUE: Normal. IMPRESSION: Unremarkable radiographs of the left tibia and fibula. DATA REPOSITORY: RADIATION DOSE DELIVERED:
--- NOTE | 2021-01-02 16:18 | ED.GENADUL_ITS ---
Discharge Plan Disposition Patient Disposition: HOME Condition: Stable Discharge Details Clinical Impression: Foot fracture, left, Left ankle sprain Primary Care Provider: Unknown,Unknown ED Provider: Elsie Best Home Meds and New Rx's Prescriptions: Continued ibuprofen [Advil] 200 mg Tablet 400 mg PO Q6H PRNRF: 0 No Action naproxen sodium [Aleve] 220 mg Tablet 440 mg PO Q6H PRNRF: 0 cefdinir 300 mg capsule 300 mg PO BID Qty: 14 RF: 0 ondansetron HCl [Zofran] 4 mg tablet 4 mg PO Q8H Qty: 7 RF: 0 Discharge Instructions Instructions: Ankle Sprain (ED), Foot Fracture in Adults (ED) Additional Instructions: X-rays today show a possible small fracture in the bone in your foot. Please wear the walking boot as needed for comfort while up and about. At rest rest ice compression elevation. Please take Tylenol or Ibuprofen with food every 4-6 hours as needed for pain and swelling. If continued pain please follow-up with orthopedics in the next 1-2 weeks. Referrals: Raffy Inman MD [ [facility] STAFF PHYSICIAN] - Medical Decision Making 20-year-old male presents to the ER status post fall off a skateboard 2 hours prior to arrival. Patient states that he stepped down off a skateboard hard rolling his ankle, falling down onto his left thigh. Reports a fall yesterday also. He denies hitting his head no loss of consciousness. No neck back chest or abdominal pain. He did take a gram of Tylenol 2 PM prior to arrival. Alert and oriented he is ambulatory with toe-touch weightbearing as tolerated. No obvious deformity or crepitus noted. He has a past medical history of asthma migraine and elevated BMI. At this time x-ray of left knee, tib-fib, ankle ordered. Imaging protocol: XR Left knee. Views: 3 views. COMPARISON: CR XR TIB/FIB LT 01/02/2021 4:42 PM FINDINGS: Bones/joints: Normal. Soft tissues: Normal. IMPRESSION: No acute findings. Thank you for allowing us to participate in the care of your patient. Dictated and Authenticated by: Doroteo Posada MD Imaging protocol: XR Left ankle. Views: 3 or more views. COMPARISON: CR XR foot LT complete 02/02/2018 3:52 PM FINDINGS: Bones/joints: There is a subtle lucency seen in the dorsal aspect of the navicular. It is best seen on the lateral. This could be projectional, but could also be a nondisplaced fracture. Recommend clinical correlation. Soft tissues: Normal. IMPRESSION: Potential navicular fracture. For high clinical concern, recommend CT. Thank you for allowing us to participate in the care of your patient. Dictated and Authenticated by: Doroteo Posada MD Imaging protocol: XR Left tibia and fibula. Views: 2 views. COMPARISON: CR XR ANKLE LT COMPLETE 01/02/2021 4:40 PM FINDINGS: Bones/joints: Normal. Soft tissues: Normal. IMPRESSION: No acute findings. Thank you for allowing us to participate in the care of your patient. Dictated and Authenticated by: Doroteo Posada MD Discussed x-ray results with patient who verbalized understanding. Discussed questionable navicular fracture. Patient reevaluation I did palpate over the navicular bone he is somewhat tender. However I am more concerned with ankle sprain. Patient given walking boot and instructed on RICE procedures and follow- up with orthopedics if continued pain. Patient verbalized understanding. This text was generated using Siteminisation system, please disregard any oddities of phrase or misspellings. HPI General Mode of arrival: ambulatory . Date/Time Provider Initiated Documentation: 01/02/21 16:13 . Limitations to Documentation: no limitations . Information obtained by: patient and RN notes reviewed . HPI Narrative: 20-year-old male presents to the ER status post fall off a skateboard 2 hours prior to arrival. Patient states that he stepped down off a skateboard hard rolling his ankle, falling down onto his left thigh. Reports a fall yesterday also. He denies hitting his head no loss of consciousness. No neck back chest or abdominal pain. He did take a gram of Tylenol 2 PM prior to arrival. Alert and oriented he is ambulatory with toe-touch weightbearing as tolerated. No obvious deformity or crepitus noted. He has a past medical history of asthma migraine and elevated BMI. Related Data Home Medications Medication Instructions Recorded Confirmed ibuprofen [Advil] 400 mg PO Q6H PRN 04/22/20 01/02/21 naproxen sodium [Aleve] 440 mg PO Q6H PRN 04/22/20 01/02/21 cefdinir 300 mg PO BID #14 cap 04/23/20 ondansetron HCl [Zofran] 4 mg PO Q8H #7 tab 04/23/20 Previous Rx's Medication Instructions Recorded cefdinir 300 mg PO BID #14 cap 04/23/20 ondansetron HCl [Zofran] 4 mg PO Q8H #7 tab 04/23/20 Allergies Allergy/AdvReac Type Severity Reaction Status Date / Time No Known Allergies Allergy Unverified 04/22/20 21:26 General Stated Complaint: Orthopedic AGGIE: 4 Review of Systems All systems reviewed & are unremarkable except as noted in HPI and below Constitutional Constitutional: Reports as per HPI and Denies headache(s) ENT Ears, Nose, Mouth, and Throat: Denies headache(s) Musculoskeletal Musculoskeletal: Reports arthralgias (Ankle) and Reports joint swelling Neurologic Neurologic: Denies headache(s) PFS Medical History (Updated 01/02/21 @ 17:33 by Elsie Best) Asthma Migraine Overweight Family History Mother Hyperlipidemia Mental disorder Depression, Anxiety, bipolar, ADD GERD (gastroesophageal reflux disease) daily prilosec declines endoscopy Father Mental disorder Other Hyperlipidemia Depression and Anxiety Bipolar ADD Mental disorder Bipolar MFG, MGGF ADD - brother Grandfather GERD (gastroesophageal reflux disease) Other Asthma Social History Smoking/Tobacco Use Status: Never Smoking risk assessment performed?: Yes Alcohol Intake: current Alcohol Intake frequency: holidays/special occasions only Alcohol type: beer Drug use: Occasionally Substance use type: marijuana Do you feel safe at home: Yes Do you feel safe in your relationship?: Yes Exam Extrem Left lower extremity: ankle Details: tenderness Location: of the lateral malleolus and of the medial malleolus and no edema; no abrasions, no lacerations and no crepitus Course Vital Signs Vital signs: Vital Signs Temperature 36.8 C 01/02/21 16:08 Pulse 83 01/02/21 16:08 Respiratory Rate 18 01/02/21 16:08 Blood Pressure 155/85 H 01/02/21 16:08 Pulse Oximetry 96 01/02/21 16:08 Temperature 36.8 C 01/02/21 16:08 Temperature Source Temporal Artery Scan 01/02/21 16:08 Pulse 83 01/02/21 16:08 Respiratory Rate 18 01/02/21 16:08 Respiratory Effort Non-Labored 01/02/21 16:13 Blood Pressure 155/85 H 01/02/21 16:08 Blood Pressure Position Sitting 01/02/21 16:08 Pulse Oximetry 96 01/02/21 16:08 Oxygen Delivery Method Room Air 01/02/21 16:08 Oxygen Flow Rate 0 01/02/21 16:08 Pain Level 5 01/02/21 16:08
--- NOTE | 2021-01-02 17:16 | DI.VRAD_ITS ---
PROCEDURE INFORMATION: Exam: XR Left Ankle Exam date and time: 01/02/2021 4:19 PM Age: 20 years old Clinical indication: Other: Fall while skate boarding TECHNIQUE: Imaging protocol: XR Left ankle. Views: 3 or more views. COMPARISON: CR XR foot LT complete 02/02/2018 3:52 PM FINDINGS: Bones/joints: There is a subtle lucency seen in the dorsal aspect of the navicular. It is best seen on the lateral. This could be projectional, but could also be a nondisplaced fracture. Recommend clinical correlation. Soft tissues: Normal. IMPRESSION: Potential navicular fracture. For high clinical concern, recommend CT. Dictated and Authenticated by: Doroteo Posada MD. Ordering:THUY Zimmerman MD
--- NOTE | 2021-01-02 17:17 | DI.VRAD_ITS ---
PROCEDURE INFORMATION: Exam: XR Left Tibia and Fibula Exam date and time: 01/02/2021 4:19 PM Age: 20 years old Clinical indication: Other: Fall while skateboarding TECHNIQUE: Imaging protocol: XR Left tibia and fibula. Views: 2 views. COMPARISON: CR XR ANKLE LT COMPLETE 01/02/2021 4:40 PM FINDINGS: Bones/joints: Normal. Soft tissues: Normal. IMPRESSION: No acute findings. Dictated and Authenticated by: Doroteo Posada MD. Ordering:THUY Zimmerman MD
--- NOTE | 2021-01-02 17:18 | DI.VRAD_ITS ---
PROCEDURE INFORMATION: Exam: XR Left Knee Exam date and time: 01/02/2021 4:19 PM Age: 20 years old Clinical indication: Other: Fall while skateboarding TECHNIQUE: Imaging protocol: XR Left knee. Views: 3 views. COMPARISON: CR XR TIB/FIB LT 01/02/2021 4:42 PM FINDINGS: Bones/joints: Normal. Soft tissues: Normal. IMPRESSION: No acute findings. Dictated and Authenticated by: Doroteo Posada MD. Ordering:THUY Zimmerman MD
== END 2021-01-02 17:51 | disposition home or self-care (01) ==
PROVIDERS: Emergency Provider Registered Nurse Emergency
DX: S92.252A Displaced fracture of navicular [scaphoid] of left foot, initial encounter for closed fracture (principal); S93.492A Sprain of other ligament of left ankle, initial encounter; V00.131A Fall from skateboard, initial encounter; M79.662 Pain in left lower leg; M25.562 Pain in left knee
CPT/HCPCS: 29515; 73562; 99284; 73590; 73610; 99283

== ENCOUNTER 2022-12-24 14:04 | Emergency (ER) | payer MEDICAID, SELFPAY ==
[2022-12-24 14:06] VITALS: BP 149/96; PULSE 86; RESP 16; TEMP 37.5; O2SAT 95
--- NOTE | 2022-12-24 14:37 | ED.GENADUL_ITS ---
Discharge Plan Disposition Patient Disposition: Home Discharge Details Clinical Impression: Rash, Itching Primary Care Provider: Unknown,Unknown ED Provider: Chula Mata Home Meds and New Rx's Prescriptions: New methylprednisolone [Medrol (Mandeep)] 4 mg tablets,dose pack See Rx Instructions .ROUTE .COMPLEX Qty: 21 0RF Rx Instructions: orally per package directions No Action naproxen sodium [Aleve] 220 mg Tablet 440 mg PO Q6H PRN ibuprofen [Advil] 200 mg Tablet 400 mg PO Q6H PRN cefdinir 300 mg capsule 300 mg PO BID Qty: 14 0RF ondansetron HCl [Zofran] 4 mg tablet 4 mg PO Q8H Qty: 7 0RF Discharge Instructions Instructions: Acute Rash (ED) Additional Instructions: start steroid dose pack as directed can apply topical hydrocortisone cream (over the counter) to your arms, don't apply to you face to your face you can apply eucerin cream or aquaphor (available at pharmacy) keep skin covered when using chemical at work Discharge Data Discharge Date/Time-TO BE ENTERED AT DEPARTURE: 12/24/22 14:43 Medical Decision Making emergent evaluation of rash. intial ddx includes contact dermatitis, doubt allergic reaction, no evidence of anaphylaxis. advised using protection when working with chemicals and avoidance of direct skin contact. will treat with steroids, antihistamines. recommended OTC topical treatments as well. HPI General Date/Time Provider Initiated Documentation: 12/24/22 14:05 . Limitations to Documentation: no limitations . Information obtained by: patient . HPI Narrative: 22y M without significant PMH presents for evaluation of red, itching skin. symptoms started today. he reports being very itchy. he thinks this is from chemical exposure at work. 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 he does not wear gloves or skin protectant. after using this, he wipes it off his skin with acetone. patient states he usually doesn't develop a rash, but on Sunday it was on his skin for much longer than usually. denies any cough, wheezing, sob, n/v, abdominal pain. Related Data Home Medications Medication Instructions Recorded Confirmed ibuprofen 200 mg tablet (Advil) 400 mg PO Q6H PRN 04/22/20 12/24/22 naproxen sodium 220 mg tablet 440 mg PO Q6H PRN 04/22/20 12/24/22 (Aleve) cefdinir 300 mg capsule 300 mg PO BID #14 caps 04/23/20 12/24/22 ondansetron HCl 4 mg tablet 4 mg PO Q8H #7 tabs 04/23/20 12/24/22 (Zofran) methylprednisolone 4 mg tablets in See Rx Instructions PO .COMPLEX 12/24/22 a dose pack (Medrol (Mandeep)) #21 dose pk Previous Rx's Medication Instructions Recorded cefdinir 300 mg capsule 300 mg PO BID #14 caps 04/23/20 ondansetron HCl 4 mg tablet 4 mg PO Q8H #7 tabs 04/23/20 (Zofran) methylprednisolone 4 mg tablets in See Rx Instructions PO .COMPLEX 12/24/22 a dose pack (Medrol (Mandeep)) #21 dose pk Allergies Allergy/AdvReac Type Severity Reaction Status Date / Time No Known Allergies Allergy Unverified 12/24/22 14:14 General Stated Complaint: ChemExpose AGGIE: 3 PFSH All Active Problems (Updated 12/24/22 @ 14:36 by Chula Mata MD) Itching (Acute) Rash (Acute) Left ankle sprain (Acute) Foot fracture, left (Acute) Medical History (Updated 12/24/22 @ 14:36 by Chula Mata MD) Asthma Overweight Migraine Family History Mother Hyperlipidemia Mental disorder Depression, Anxiety, bipolar, ADD GERD (gastroesophageal reflux disease) daily prilosec declines endoscopy Father Mental disorder Other Hyperlipidemia Depression and Anxiety Bipolar ADD Mental disorder Bipolar MFG, MGGF ADD - brother Grandfather GERD (gastroesophageal reflux disease) Other Asthma Social History Smoking/Tobacco Use Status: Never Smoking risk assessment performed?: Yes Alcohol Intake: current Alcohol Intake frequency: holidays/special occasions only Alcohol type: beer Drug use: Occasionally Substance use type: marijuana Do you feel safe at home: Yes Do you feel safe in your relationship?: Yes Exam Narrative Exam Narrative: Review of Systems: All systems reviewed & are unremarkable except as noted in HPI and below: CONSTITUTIONAL: Alert and oriented Well-developed, no acute distress HEENT: NACT EYES: PERRL, no conjunctival injection EARS: no external abnormality NOSE nares patent MOUTH Moist MM NECK: Symmetric, trachea midline, No thyromegaly THROAT oropharynx clear CVS: RRR, RESP: Unlabored respiratory effort, No wheezes SKIN: Warm, Dry. face erythematous particularly around cheeks, no intra oral/ mucosal involvement, no swelling bilateral hands with some erythema, mostly excoriations, no hives, some scattered red splotches on arms without obvious pattern NEURO: No focal neurologic deficits. Course Vital Signs Vital signs: Vital Signs Temperature 37.5 C 12/24/22 14:06 Pulse 86 12/24/22 14:06 Respiratory Rate 16 12/24/22 14:06 Blood Pressure 149/96 H 12/24/22 14:06 Pulse Oximetry 95 12/24/22 14:06 Temperature 37.5 C 12/24/22 14:06 Temperature Source Skin 12/24/22 14:06 Pulse 86 12/24/22 14:06 Respiratory Rate 16 12/24/22 14:06 Respiratory Effort Normal 12/24/22 14:18 Blood Pressure 149/96 H 12/24/22 14:06 Blood Pressure Position Sitting 12/24/22 14:06 Pulse Oximetry 95 12/24/22 14:06 Oxygen Delivery Method Room Air 12/24/22 14:06 Oxygen Flow Rate 0 12/24/22 14:06 Pain Level 3 12/24/22 14:06
[2022-12-24 14:42] VITALS: BP 149/96; PULSE 86; RESP 16; TEMP 37.5; O2SAT 95
[2022-12-24] MEDS: Dexamethasone 4 MG TAB 8 MG PO (14:42)
[2022-12-24] MEDS: diphenhydrAMINE 25 MG CAP 50 MG PO (14:42)
[2022-12-24] MEDS: Famotidine 20 MG TAB 40 MG PO (14:42)
== END 2022-12-24 14:43 | disposition home or self-care (01) ==
PROVIDERS: Emergency Provider Emergency Medicine
DX: R21 Rash and other nonspecific skin eruption (principal); L29.9 Pruritus, unspecified
CPT/HCPCS: 99283; J8540

== ENCOUNTER 2023-07-07 23:40 | Emergency (ER) | payer SELFPAY ==
[2023-07-07 23:44] VITALS: BP 166/96; PULSE 92; RESP 16; TEMP 36.2; O2SAT 96
--- NOTE | 2023-07-07 23:47 | ED.GENADUL_ITS ---
Discharge Plan Disposition Patient Disposition: Home Condition: Good Discharge Details Clinical Impression: Eardrum rupture, left, Bilateral acute otitis media Primary Care Provider: [place],Local ED Provider: Fidel Simental Home Meds and New Rx's Prescriptions: New amoxicillin-pot clavulanate 875-125 mg tablet 1 tab PO BID 10 Days Qty: 20 0RF Discharge Instructions Instructions: Ear Infection (ED) Additional Instructions: At this time you have otitis media/ear infection. Unfortunately your left ear infection has caused a mild rupture. This will heal over time. Please take the antibiotics as directed. Please take Tylenol and Motrin to help decrease the inflammation to improve the drainage. Avoid taking Benadryl or loratadine as this can worsen/delay the drainage through your eustachian tubes. If you notice any worsening of your symptoms, or any new symptoms such as vomiting, diarrhea, fever, chills, shortness of breath, chest pain, numbness, weakness, or fainting , please return immediately to the emergency department for reevaluation. Please follow up with your primary care provider as soon as possible for reassessment and reevaluation. As always, it was a pleasure participating in your medical care today. HPI General Date/Time Provider Initiated Documentation: 07/07/23 23:41 . HPI Narrative: 22-year-old male with a past medical history of chronic diminished left-sided hearing, who presents today for evaluation of ear pain bilaterally. Patient states that for the last week and a half he has had mild pain in his ears, few days ago he had notable worsening of his pain in his left ear, noticed a small amount of blood and then the pain improved. He denies fever or chills. He denies cough or shortness of breath. He does not smoke tobacco. He denies any other complaint. Related Data Home Medications Medication Instructions Recorded Confirmed amoxicillin 875 mg-potassium 1 tab PO BID 10 days #20 tabs 07/07/23 clavulanate 125 mg tablet Previous Rx's Medication Instructions Recorded amoxicillin 875 mg-potassium 1 tab PO BID 10 days #20 tabs 07/07/23 clavulanate 125 mg tablet Allergies Allergy/AdvReac Type Severity Reaction Status Date / Time No Known Allergies Allergy Unverified 12/24/22 14:14 General Stated Complaint: EarProblem AGGIE: 5 Review of Systems All systems reviewed & are unremarkable except as noted in HPI and below Exam Narrative Exam Narrative: 1.Const: Well-nourished, Well-developed, appearing stated age 2.Eyes: PERRL, no conjunctival injection, and symmetrical lids. 3.ENT: Atraumatic external nose and ears. Moist MM. Neck: Symmetric, trachea midline, No thyromegaly. Right tympanic membrane demonstrates large effusion and bulging. Left tympanic membrane demonstrates effusion group home up, small amount of blood, evidence of scab over the tympanic membrane. No mastoid tenderness. No otitis externa. 4.CVS: +S1/S2, No murmurs or gallops. Peripheral pulses 2+ and equal in all extremities. Brisk capillary refill in all extremities. 5.RESP: Unlabored respiratory effort. Clear to auscultation bilaterally. No wheezes rales or rhonchi 6.GI: Soft, Nontender/Nondistended, No hepatosplenomegaly. No guarding or rebound. 7.MSK: Normocephalic/Atraumatic, Extremities w/o deformity or ttp No cyanosis or clubbing, Normal movement of all extremities 8.Skin: Warm, Dry. No rashes or lesions. 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 Sensation grossly intact, no focal neurologic deficits. 10.Psych: (AAO) x3. Appropriate mood and affect Course Vital Signs Vital signs: Vital Signs Temperature 36.2 C L 07/07/23 23:44 Pulse 92 H 07/07/23 23:44 Respiratory Rate 16 07/07/23 23:44 Blood Pressure 166/96 H 07/07/23 23:44 Pulse Oximetry 96 07/07/23 23:44 Temperature 36.2 C L 07/07/23 23:44 Pulse 92 H 07/07/23 23:44 Respiratory Rate 16 07/07/23 23:44 Blood Pressure 166/96 H 07/07/23 23:44 Pulse Oximetry 96 07/07/23 23:44 Oxygen Delivery Method Room Air 07/07/23 23:44 Oxygen Flow Rate 0 07/07/23 23:44 Pain Level 4 07/07/23 23:44 Medical Decision Making 22-year-old male with a past medical history of chronic diminished left-sided hearing, who presents today for evaluation of ear pain bilaterally. Patient states that for the last week and a half he has had mild pain in his ears, few days ago he had notable worsening of his pain in his left ear, noticed a small amount of blood and then the pain improved. He denies fever or chills. He denies cough or shortness of breath. He does not smoke tobacco. He denies any other complaint. Exam demonstrates well-appearing male, right tympanic membrane demonstrates notable effusion and bulging, left tympanic membrane demonstrates an effusion group home up, small amount of blood scab and evidence of what I would assume would be previous rupture. No mastoid tenderness, no evidence of mastoiditis. No nuc leann rigidity. No signs of otitis externa. No other abnormalities. Vital signs stable. No evidence of sepsis. Will prescribe Augmentin, and give the first dose here. Recommend NSAID therapy at home. Discussed red flags which to return. I have extensively reviewed the treatment plan and discharge instructions with the patient. I have addressed all patient concerns at this time. The patient was made aware of what symptoms to monitor for that would warrant a return to the emergency department. Discussed the plan with the patient, they demonstrate verbal understanding and agreement with our assessment and plan at this time. The documentation in this chart was dictated using [employer] dictation software. Please excuse any dictation errors. Quality:SDOH Health Related Social Needs: No Data to Display PFSH All Active Problems Bilateral acute otitis media (Acute) Eardrum rupture, left (Acute) Left ankle sprain (Acute) Foot fracture, left (Acute) Medical History Asthma Overweight Migraine Family History Mother Hyperlipidemia Mental disorder Depression, Anxiety, bipolar, ADD GERD (gastroesophageal reflux disease) daily prilosec declines endoscopy Father Mental disorder Other Hyperlipidemia Depression and Anxiety Bipolar ADD Mental disorder Bipolar MFG, MGGF ADD - brother Grandfather GERD (gastroesophageal reflux disease) Other Asthma Social History Smoking/Tobacco Use Status: Never Smoking risk assessment performed?: Yes Alcohol Intake: current Alcohol Intake frequency: holidays/special occasions only Alcohol type: beer Drug use: Occasionally Substance use type: marijuana Do you feel safe at home: Yes Do you feel safe in your relationship?: Yes
[2023-07-07] MEDS: Amox. 875/Clav. 125, 2 TABS/BTL 1 TAB PO (23:53)
== END 2023-07-07 23:54 | disposition home or self-care (01) ==
PROVIDERS: Emergency Provider Student in an Organized Health Care Education/Training Program
DX: H66.93 Otitis media, unspecified, bilateral (principal)
CPT/HCPCS: 99283